=== PATIENT | male | born 1945 | race Caucasian/White ===

== ENCOUNTER 2017-06-15 08:38 | Outpatient (RCR) | payer MEDICARE | END 2017-06-16 | LOC: M CR 08:38 | PROVIDERS: ATTEND Internal Medicine Cardiovascular Disease | DX: Z51.89 Encounter for other specified aftercare (principal); I25.10 Atherosclerotic heart disease of native coronary artery without angina pectoris; Z98.61 Coronary angioplasty status ==

== ENCOUNTER 2017-06-18 08:10 | Outpatient (RCR) | payer MEDICARE | END 2017-07-17 | LOC: M CR 08:10 | PROVIDERS: ATTEND Internal Medicine Cardiovascular Disease | DX: Z51.89 Encounter for other specified aftercare (principal); Z98.61 Coronary angioplasty status; I25.10 Atherosclerotic heart disease of native coronary artery without angina pectoris ==

== ENCOUNTER 2019-09-14 08:52 | Emergency (ER) | payer MEDICARE ==
[~2019-09-14] VITALS: Ht 172.7 cm; Wt 80.9 kg
[2019-09-14] MEDS ORDERED: CLOP75TA2 OR (09:16)
[2019-09-14] MEDS ORDERED: ROSU10TA6 OR (09:16)
[2019-09-14] MEDS ORDERED: AMLO5TAB6 OR (09:16)
[2019-09-14] MEDS ORDERED: ASPI81TA85 PO (09:16)
[2019-09-14] MEDS ORDERED: METF500T13 OR (09:16)
[2019-09-14] MEDS ORDERED: LISI10TA4 OR (09:16)
[2019-09-14] MEDS ORDERED: METO1TAB32 OR (09:16)
[2019-09-14] MEDS ORDERED: FURO40TA2 OR (09:16)
[2019-09-14] MEDS ORDERED: GABA-843 OR (09:16)
[2019-09-14] MEDS ORDERED: NS 1,000 ML IV SCH (09:20)
[2019-09-14] MEDS ORDERED: ASPIRIN 81 MG CHEW TABLET PO ONE (09:30)
--- NOTE | 2019-09-14 09:50 | REP ---
Clinical: Sensorimotor deficit . Comparison: None . Technique: PA and lateral. Findings: The mediastinum and cardiac silhouette are normal. The lung parra are clear and without acute consolidation, effusion, or pneumothorax. The skeletal structures are intact and normal. Impression: 1. No acute cardiopulmonary process. Electronically Signed by Jeremy Munoz MD 09/14/2019 09:42 A
--- NOTE | 2019-09-14 09:56 | REP ---
Clinical: Sensory deficit Comparison: none. Findings: The ventricles, sulci, and cisterns are normal in position and appearance. Gregory-white differentiation is maintained. No acute intracranial hemorrhage, mass/mass effect, pathology or trauma/injury. No evidence for acute infarction. No extra-axial fluid collection. Calvarium is intact. Paranasal sinuses and mastoid air cells are clear. Impression: Normal noncontrast head CT. No evidence for acute intracranial pathology or trauma/injury. Electronically Signed by Jeremy Munoz MD 09/14/2019 09:48 A
[2019-09-14] MEDS ORDERED: ACET650T3 PO (10:02)
--- NOTE | 2019-09-14 10:05 | REP ---
Clinical: Right upper extremity numbness/weakness. Technique: Axial noncontrast images from the skull base to the thoracic inlet with coronal and sagittal re-formations. Findings: Alignment and lordosis maintained. No acute fracture / compression injury or subluxation. Generalized age-related degenerative changes include subtle spurring/osteophyte formation along with minimal endplate sclerosis, disc space narrowing and facet arthropathy primarily involving C5-6 and C6-7. Spinal canal appears patent. Paravertebral soft tissues are normal. Impression: Generalized multilevel age-related degenerative changes. Electronically Signed by Jeremy Munoz MD 09/14/2019 09:57 A
[2019-09-14 10:09] LABS: BASO % 0.2 % (0.0-1.0); EOS # 0.2 10^3/uL (0.0-0.5); HEMATOCRIT 41.9 % (42.0-52.0); HEMOGLOBIN 13.5 g/dl (13.5-17.5); LYMPH # 0.8 10^3/uL (1.5-5.0); LYMPH % 18.3 % (24.0-44.0); MEAN CORPUSCULAR HGB CONC 32.2 g/dl (32.0-36.5); MEAN CORPUSCULAR VOLUME 90.1 fl (80.0-96.0); MONO # 0.4 10^3/uL (0.0-0.8); MONO % 8.8 % (0.0-5.0); NEUTROPHILS # 3.1 10^3/uL (1.5-8.5); NEUTROPHILS % 68.5 % (36.0-66.0); PLATELET COUNT, AUTOMATED 135 10^3/uL (150-450); RED BLOOD COUNT 4.65 10^6/uL (4.30-6.10); WHITE BLOOD COUNT 4.5 10^3/uL (4.0-10.0)
[2019-09-14] MEDS ORDERED: ISOVUE-370 76% 100ML VIAL (Q9967) As Ordered ONE (10:14)
[2019-09-14 10:21] LABS: INR 1.06; PROTHROMBIN TIME 13.6 SECONDS (11.8-14.0)
[2019-09-14 10:38] LABS: CK-MB VALUE MASS 2.2 NG/ML (<3.6); CPK CREATINE PHOSPHOKINASE 73 U/L (39-308); MB/CK RELATIVE INDEX 3.01 (< OR =4); TROPONIN I < 0.02 NG/ML (< 0.10)
--- NOTE | 2019-09-14 10:46 | REP ---
INDICATION: Right upper extremity sensorimotor deficit. PROCEDURE: Axial contrast enhanced images from the the mid skull to the thoracic inlet using angiographic protocol with 100 ml Isovue 370 intravenous contrast material. Coronal and sagittal multiplanar re-formations, volume rendered 3-D MPR and MIP re-formations obtained COMPARISON STUDIES: None. FINDINGS: There is no evidence of dissection or acute bleed. The common carotid arteries, internal and external carotid arteries, and vertebral arteries are patent without evidence of stenosis. No other abnormalities are identified. CONCLUSION: Normal CT angiogram of the neck. Electronically Signed by Jeremy Munoz MD 09/14/2019 10:38 A
--- NOTE | 2019-09-14 13:06 | REPVR ---
PROCEDURE INFORMATION: Exam: MR Head Without Contrast Exam date and time: 09/14/2019 12:41 PM Age: 74 years old Clinical indication: Weakness, extremity; Right; Additional info: R arm sensorimotor deficit TECHNIQUE: Imaging protocol: MR of the head without contrast. COMPARISON: CT Head without contrast 09/14/2019 9:27 AM FINDINGS: Brain: A few T2 hyperintense foci are noted in the cerebral white matter bilaterally. Age-related mild bilateral cerebral atrophy. Ventricles: No hydrocephalus or evidence of increased intracranial pressure. Bones/joints: Unremarkable. Soft tissues: Unremarkable. Sinuses: Normal as visualized. No acute sinusitis. Mastoid air cells: Normal as visualized. No mastoid effusion. Orbits: Bilateral prior cataract surgery. IMPRESSION: 1. 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 2. No acute intracranial abnormality identified. Electronically signed by: Jose Peoples On 09/14/2019 13:06:07 PM
[2019-09-14 14:23] VITALS: BP 136/83
--- NOTE | 2019-09-14 15:51 | ECGEPIP ---
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
== END 2019-09-14 15:36 | disposition home or self-care (01) ==
LOC: M ED 08:52
DX: R29.818 Other symptoms and signs involving the nervous system (principal); D64.9 Anemia, unspecified; M47.812 Spondylosis without myelopathy or radiculopathy, cervical region; I45.10 Unspecified right bundle-branch block; M50.30 Other cervical disc degeneration, unspecified cervical region; M25.78 Osteophyte, vertebrae; I11.9 Hypertensive heart disease without heart failure; I21.9 Acute myocardial infarction, unspecified; G47.30 Sleep apnea, unspecified; Z98.61 Coronary angioplasty status; Z88.2 Allergy status to sulfonamides; Z79.82 Long term (current) use of aspirin; Z79.84 Long term (current) use of oral hypoglycemic drugs; Z79.899 Other long term (current) drug therapy
CPT/HCPCS: 36415; 70450; 70498; 70551; 71046; 72125; 80047; 82550; 82553; 84484; 85025; 85610; 85730; 86850; 86900; 86901; 93005; 94760; 99284; Q9967